=== PATIENT | female | born 1985 | race Caucasian/White ===

== ENCOUNTER → 2020-11-23 02:04 | Outpatient (CLI) | payer BC, SELFPAY ==
[2020-11-24 15:30] LABS: SARS-CoV-2 RNA PCR Negative
== END ==
PROVIDERS: PCP Family Medicine; Visit Provider Physician Assistant
DX: R05 Cough (principal); Z20.822 Contact with and (suspected) exposure to COVID-19
CPT/HCPCS: C9803; U0003; U0005

== ENCOUNTER 2021-02-10 16:14 | Outpatient (CLI) | payer BC, SELFPAY ==
--- NOTE | ~2021-02-10 | MR_ITS ---
EXAMINATION: MR lumbar spine wo con DATE: 02/10/2021 17:57 INDICATION: Dorsalgia TECHNIQUE: Magnetic resonance imaging (MRI) of the lumbar spine was performed without intravenous con trast. Sequences included sagittal T2-weighted FSE, sagittal T2-weighted FS FSE, sagittal T1-weighted FSE, and axial T2-weighted FSE. COMPARISON: None FINDINGS: Mild thoracolumbar dextrocurvature. Sagittal alignment is normal.. Vertebral body heights are normal. Disc desiccation and mild to moderate disc height loss at L4-L5 and mild height loss at L5-S1. There are annular fissures at both levels. Fibrovascular degenerative endplate changes on the right at L4- L5. Marrow signal is otherwise normal. The conus medullaris terminates at T12-L1. There is normal sig nal in the caudal spinal cord. Paravertebral soft tissues are unremarkable. The following disc levels are specifically discussed: T12-L1: The disc does not extend beyond the endplate margin. There is mild left facet joint osteoarth ritis. There is no neural foraminal stenosis. There is no central canal stenosis. L1-L2: The disc does not extend beyond the endplate margin. There is mild bilateral facet joint osteo arthritis. There is no neural foraminal stenosis. There is no central canal stenosis. L2-L3: The disc does not extend beyond the endplate margin. There is mild left facet joint osteoarthr itis. There is no neural foraminal stenosis. There is no central canal stenosis. L3-L4: The disc does not extend beyond the endplate margin. There is mild left facet joint osteoarthr itis. There is no neural foraminal stenosis. There is no central canal stenosis. L4-L5: Disc is bulging. There is mild bilateral facet joint osteoarthritis. There is mild bilateral n eural foraminal stenosis. There is mild central canal stenosis. L5-S1: Disc is bulging. There is mild bilateral facet joint osteoarthritis. There is no neural forami nal stenosis. There is no central canal stenosis. IMPRESSION: 1. Mild lower lumbar spondylosis. Reviewed, dictated and finalized at location A. ASTER
== END 2021-02-10 16:15 | disposition home or self-care (01) ==
LOC: ANHIMG 16:18
PROVIDERS: PCP Family Medicine; Visit Provider Family Medicine
DX: M54.9 Dorsalgia, unspecified (principal); R53.1 Weakness; M47.816 Spondylosis without myelopathy or radiculopathy, lumbar region
CPT/HCPCS: 72148

== ENCOUNTER → 2021-08-06 07:37 | Outpatient (CLI) | payer BC, SELFPAY ==
--- NOTE | ~2021-08-06 | XR_ITS ---
EXAMINATION: XR chest 2V Exam Date/Time: 08/06/2021 7:40 CDT CLINICAL HISTORY: cough x 2.5 weeks Comparison: None available. RESULT: Lines, tubes, and devices: None. Lungs and pleura: Clear. Cardiomediastinal silhouette: Normal cardiomediastinal silhouette. Other: No acute osseous or upper abdominal finding. IMPRESSION: No acute cardiopulmonary process Reviewed, dictated and finalized at location K.
== END ==
PROVIDERS: PCP Family Medicine; Visit Provider Family Medicine
DX: R05.9 Cough, unspecified (principal)
CPT/HCPCS: 71046

== ENCOUNTER → 2022-11-30 14:33 | Outpatient (CLI) | payer BC, SELFPAY ==
--- NOTE | ~2022-11-30 | MM_ITS ---
EXAMINATION: MM screening jeromy BI w delroy HISTORY: Screening mammogram TECHNIQUE: Craniocaudal and mediolateral oblique 3-D tomosynthesis images were obtained and synthetic 2-D images were generated. Bilateral rotated lateral craniocaudal views. CAD analysis was submitted and interpreted. COMPARISON: No prior mammogram is available for comparison at this institution. BREAST PARENCHYMAL COMPOSITION: There are scattered areas of fibroglandular density. FINDINGS: There is no evidence of suspicious mass, calcification, or architectural distortion to sugg est malignancy in either breast. IMPRESSION: 1. No mammographic evidence of malignancy. 2. Recommend routine screening mammography in one year. BI-RADS Category 1: Negative Reviewed, dictated and finalized at location A.
== END ==
PROVIDERS: PCP Family Medicine; Visit Provider Family Medicine
DX: Z12.31 Encounter for screening mammogram for malignant neoplasm of breast (principal)
CPT/HCPCS: 77063; 77067

== ENCOUNTER 2024-02-12 15:14 | Outpatient (CLI) | payer BC, SELFPAY ==
--- NOTE | ~2024-02-12 | MM_ITS ---
EXAMINATION: MM screening jeromy BI w delroy HISTORY: Screening mammogram TECHNIQUE: Craniocaudal and mediolateral oblique 3-D tomosynthesis images were obtained and synthetic 2-D images were generated. CAD analysis was submitted and interpreted. COMPARISON: 11/30/2022 BREAST PARENCHYMAL COMPOSITION:Not Dense. There are scattered areas of fibroglandular density. FINDINGS: No suspicious mass, calcification, or architectural distortion are identified in either christy ast to suggest malignancy. There has been no suspicious interval change. IMPRESSION: No mammographic evidence of malignancy. Recommend routine screening mammography in one year. BI-RADS Category 1: Negative Reviewed, dictated and finalized at location . PING INVESTIGATOR
== END 2024-02-12 15:15 | disposition home or self-care (01) ==
PROVIDERS: Visit Provider Family Medicine
DX: Z12.31 Encounter for screening mammogram for malignant neoplasm of breast (principal)
CPT/HCPCS: 77063; 77067

== ENCOUNTER 2024-05-05 13:18 | Outpatient (CLI) | payer BC, SELFPAY ==
--- OUTSIDE RECORDS SUMMARY | 2024-05-05 13:33 | XMS_ITS | Clinical Summary ---
Author Organization [facility] Address [address] [place] [address] Care Team Providers Care Machine Printer Hose Name Role Phone Unavailable Primary Care Provider Unavailabl e Source Comments [facility],non-owned Affiliates and Associated Physician Practices is amultiple site organization consisting of ambulatory clinics and hospital sitesin [place], [place], [place] and [place]. This disclosure is being madepursuant to the Care Everywhere program and may not contain all information available regarding this patient. Last updated 17.[facility] Immunizations Name Administration Dates Next Due INFLUENZA VACCINE, QUADR. (F LUZONE; FLULAVAL; FLUARIX; AFLURIA QUADRIVALENT; 6MO+), 0.5 ML (IIV4) 12/04/2019 Social History Tobacco Use Types Packs/Day Years Used Date Smoking Tobacco: Never Assessed Sex and Gender Information Value Date Recorded Sex Assigned at Not on file Gender Identity Not on file Sexual Orientation Not on file Plan of Treatment Health Maintenance Due Date Last Done Comments PAP SMEAR 1987 HIV SCREENING 2002 HEPATITIS C SCREENING 04/02/2005 DTAP/TDAP/TD VACCINES (1 - Tdap) 2006 HEPATITIS B VACCINE (1 of 3 - 19+ 3-dose series) 2006 COVID-19 VACCINE ( - 2023-2 5 season) 2023 INFLUENZA VACCINE (#1) 2023 12/04/2019 DEPRESSION SCREENING 03/26/2024 ZOSTER VACCINE (1 of 2) 2037 HIB VACCINE Aged Out No longer eligi ble based on patient's age to complete this topic HPV VACCINE Aged Out No longer eligi ble based on patient's age to complete this topic MENINGOCOCCAL (Group B) VACCINE Aged Out No longer eligible based on patient's age to complete this topic MENINGOCOCCAL VACCINE Aged Out No herber rajiv eligible based on patient's age to complete this topic PNEUMOCOCCAL VACCINE Aged Out No long er eligible based on patient's age to complete this topic
--- OUTSIDE RECORDS SUMMARY | 2024-05-05 13:33 | XMS_ITS | Encounter Summary ---
Author Organization [facility] Address [address] [facility] [place] [address] Care Team Providers Care Manager Speech Name Role Phone Lizet Baird DO Primary Care Provider [phone]- [phone] Reason for Referral * Diagnostic Imaging (Routine) - Authorized Specialty Diagnoses / Procedures Referred By Mamie t Referred To Contact Diagnoses Menorrhagia with regular cycle Procedures US Pelvis Complete Kian Adrian MD [address] [facility] [address], [place] [address] Phone: tel: fax: JERRELL Referral ID Status Reason Start Date Expiration Date V isits Requested Visits Authorized [id number] Authorized 05/05/2024 06/04/2025 1 1 ER CUTTER Reason for Visit * Reason Comments Well Women Visit Pt offered and decli wiliam drafter topographical for today's visit. Encounter Details Date Type Department Care Team (Latest Contact Info) Description 05/05/2024 10:35 AM TIMBER CUTTER Office Visit [facility] [address] [place] [address] Medical Office [address] [place] [address] Kian Adrian MD [address] [facility] [address], [place] [address] Well woman exam with routine gynecological exam (Primary Dx); Menorrhagia with regular cycle Social History Tobacco Use Types Packs/Day Years Used Date Smoking Tobacco: Never Smokeless Tobacco: Never Alcohol Use Standard Drinks/Week Comments Never 0 (1 standard drink = 0.6 oz pur e alcohol) AUDIT-C Answer Date Recorded Frequency of Alcohol Consumption Never 11/14/2018 Average Number of Drinks Not on file 019 Frequency of Binge Drinking Not on file 10/25 Comments No Sex and Gender Information Value Date Recorded Sex Assigned at Not on file Legal Sex Female 11:14 AM TIMBER CUTTER Gender Identity Not on file Sexual Orientation Not on file 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 Well Woman Exam Subjective: Marian Barton is a 39 y.o. female who presents for Chief Complaint Patient presents with Well Women Visit Pt offered and declined drafter topographical for today's visit. . HPI: Menses: Regular Cycle length: Monthly Bleeds for 3-4 days, heavy, changes super tampons 4x a day Abnormal vaginal bleedings: denies Dyspareunia: denies Vaginal discharge: denies Lower abdominal or pelvic pain: denies Bloating:denies Bowel problems: denies Bladder problems: denies Current Medications: Current Outpatient Medications: buPROPion SR (WELLBUTRIN SR) 100 mg 12 hr tablet, Take 1 tablet (100 mg total) by mouth 2 (two) times a day, Disp: , Rfl: EPINEPHrine 0.3 mg/0.3 mL auto-injection syringe, INJECT 0.3 ML IN THE MUSCLE ONCE A SINGLE DOSE, Disp: , Rfl: Mounjaro 2.5 mg/0.5 mL pen injector, ADMINISTER 2.5 MG UNDER THE SKIN WEEKLY FOR 4 WEEKS (Patient not taking: Reported on 05/05/2024), Disp: , Rfl: sertraline (ZOLOFT) 100 mg tablet, Take 1 tablet (100 mg total) by mouth daily, Disp: , Rfl: sertraline (ZOLOFT) 25 mg tablet, 2 (two) times a day, Disp: , Rfl: Allergies: Allergies Allergen Reactions Tree Nuts Anaphylaxis Cat Dander Itching Obstetric History: OB History Para Term AB Living 1 1 1 0 0 1 SAB IAB Ectopic Multiple Live Births 0 0 0 0 1 # Outcome Date GA Lbr Kadeem/2nd Weight Sex Type Anes PTL Lv 1 Term 11/15/18 39w6d 04:59 / 02:55 3.41 kg (7 lb 8.3 oz) F Vag-Spont EPI N CARLA Comments: see peds Name: KARLA BARTON Apgar1: 6 Apgar5: 8 Obstetric Comments # 1: 11/15/2018 39 6/7 weeks, SOOL, OT aug, , girl, Adley , 7#8, epidural, DW at [facility](was told by peds at delivery high index of suspicion for Downs due to facial features and chromosomes were WNL). 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 Screening History: Screening History Date of Last Pap if Known: 04-30-23 co-testing: negative History of Abnormal Paps: Yes (2007- LEEP for VARGHESE 2.) Ever had an HPV vaccine?: Yes Number of doses received: 3 Ever had a mammogram?: Yes Date of Mammogram: 02-13-24 neg Medical History: Past Medical History: Diagnosis Date Allergic rhinitis Anemia Anxiety Arthritis Asthma Depression history of VARGHESE LEEP for VARGHESE 2 2007 HPV (human papilloma virus) infection Surgical History: Past Surgical History: Procedure Laterality Date CERVICAL BIOPSY W/ LOOP ELECTRODE EXCISION 2008 IN 2 Family History: Family History Problem Relation Age of Onset Mental illness Mother Arthritis Father Hypertension Father Mental illness Brother Social: Social History Tobacco Use Smoking status: Never Smokeless tobacco: Never Substance and Sexual Activity Drug use: Never Sexual activity: Not Currently control/protection: Vasectomy Alcohol Use: Not At Risk (11/14/2018) AUDIT-C Frequency of Alcohol Consumption: Never Average Number of Drinks: Not on file Frequency of Binge Drinking: Not on file REVIEW OF SYSTEMS: General: Negative for fever, fatigue, weight loss Skin: Negative for color change and rash. HENT: Negative for congestion and nosebleeds. Breast: Negative for lumps, pain and nipple discharge. Gastrointestinal: Negative for abdominal pain. Constipation, diarrhea, nausea/vomiting. Endocrine: Negative for heat intolerance. Genitourinary: Negative for dysuria, frequent urination or loss of urine. Allergic/Immunologic: Negative for immunocompromised state. Neurological: Negative for dizziness and headaches. Hematological: Negative for adenopathy. Psychiatric/Behavioral: Negative for anxiety, depression or eating disorders Musculoskeletal: Negative for muscle aches, weakness or painful joints. Women only: Negative for heavy bleeding, irregular bleeding, missed periods, painful periods, painful intercourse, vaginal discharge/itching. Objective BP 110/68 Wt 175 lb (79.4 kg) LMP 04/13/2024 (Exact Date) BMI 28.25 kg/m?? Physical Exam General: alert, orientated, cooperative Breast: normal in appearance, no nipple discharge, no lumps, no skin changes CV: regular rate and rhythm Lungs: clear to auscultation bilaterally Abdomen: soft, non-tender, no palpable masses, non-distended, normal bowel sounds present. No scarspresent Extremities: non-tender, no edema Container Finishing Inspector exam: External:normal appearing and no lesions Urethra: normal appearing, No lesions or prolapse Bladder: normal appearance, No masses or tenderness. Vagina: Normal Cervix: Post LEEP appearance, approximately 1 cm in length externally, no cervical motion tenderness, lesions, discharge or bleeding Uterus: Normal size, non tender Adnexa: non-tender and no palpable masses Perineum: normal Rectal: deferred Assessment and Plan 1. Well woman exam with routine gynecological exam (Primary) The importance of routine health maintenance exams including breast and pelvic exams, annual screening mammography starting at age 40, periodic bone density testing in post menopausal women and screening colonoscopy after age 45, regardless of a family hx, was discussed with the ptnt. 2. Menorrhagia with regular cycle The patient's menorrhagia was discussed in detail. Possible etiologies were reviewed and diagnostictools to better identify the source of her menorrhagia including ultrasound, hysteroscopy, endometrial biopsy and even D&C were discussed. Options of management were also reviewed. These options include expectant management at this time, a trial of oral contraceptives, a cyclic progestin, a non-hormonal non-daily medication such as Lysteda, a Mirena intrauterine device, various types of endometrial ablation procedures, and even hysterectomy. Will begin with US RTO 1 year/prn Kian Adrian MD ER CUTTER documented in this encounter Plan of Treatment Scheduled Orders Name Type Priority Associated Diagnoses Orde r Schedule US Pelvis Complete Imaging Routine Menorrhagia with regular cycle Expected: 05/05/2024, Expires: 05/05/2025 documented as of this encounter Visit Diagnoses Diagnosis Well woman exam with routine gynecological exam- Primary Routine gynecological examination Menorrhagia with regular cycle documented in this encounter Discontinued Medications Medication Sig Discontinue Reason Start Date End Da te cyclobenzaprine (FLEXERIL) 10 mg tablet Take 10 mg by mouth 3 (three) times a day as needed for muscle spasms Patient Reported 02/10/2021 05/02/[address] (VOLTAREN) 75 mg EC tablet Take 1 BID with food Patient Reported 02/24/2021 05/02/2024 documented as of this encounter Care Teams Manager Speech Relationship Specialty Start Date End Date Lizet Baird DO PCP - General Family Medicine 02/24/21 documented as of this encounter
--- OUTSIDE RECORDS SUMMARY | 2024-05-05 13:33 | XMS_ITS | Referral Summary ---
Author Organization [facility] Address [address] [place] [address] Care Team Providers Care Control Supervisor Name Role Phone Lizet Baird DO Primary Care Provider [phone]- [phone] Encounters Date Type Department Care Team Description 05/05/2024 10:35 AM CORRECTION OFFICER HEAD [facility] Visit [facility] [address] [place] [phone] Kian Adrian MD Well woman exam with routine gynecological exam (Primary Dx); Menorrhagia with regular cycle 02/13/2024 Orders Only [facility] [address] [place] [phone] Kian Adrian MD from Last 3 Months Allergies Active Allergy Reactions Criticality Noted Date Comments Cat Dander Itching Low 02/24/2021 Tree Nuts Anaphylaxis High 10/02/2012 Medications EPINEPHrine 0.3 mg/0.3 mL auto-injection syringe INJECT 0.3 ML IN THE MUSCLE ONCE A SINGLE DOSE 1 Active sertraline (ZOLOFT) 100 mg tablet Take 1 tablet (100 mg total) by mouth daily 1 Active sertraline (ZOLOFT) 25 mg tablet 2 (two) times a day 1 Active Mounjaro 2.5 mg/0.5 mL pen injector ADMINISTER 2.5 MG UNDER THE SKIN WEEKLY FOR 4 WEEKS 4 Active buPROPion SR (WELLBUTRIN SR) 100 mg 12 hr tablet Take 1 tablet (100 mg total) by mouth 2 (two) times a day Active cyclobenzaprin e (FLEXERIL) 10 mg tablet Take 10 mg by mouth 3 (three) times a day as needed for muscle spasms 1 05/02/19 25 Discontinu ed(Patient Reported) diclofenac DR (VOLTAREN) 75 mg EC tablet Take 1 BID with food 60 tablet 1 05/02/19 25 Discontinu ed(Patient Reported) Active Problems No known active problems Social History Tobacco Use Types Packs/Day Years [...] on file Legal Sex Female 11:14 AM CORRECTION OFFICER HEAD Gender Identity Not on file Sexual Orientation Not on file 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 Not on file Not on file Not on file Last Filed Vital Signs Vital Sign Reading Time Taken Comments Blood Pressure 110/68 05/05/2024 10:39 AM CORRECTION OFFICER HEAD Pulse 85 11/17/2018 7:15 AM CDT Temperature 36.5 C (97.7 F) 11/17/2018 7:15 AM CDT Respiratory Rate 18 11/17/2018 7:15 AM CDT Oxygen Saturation 99% 11/17/2018 7:15 AM CDT Inhaled Oxygen Concentration - - Weight 79.4 kg (175 lb) 05/05/2024 10:39 AM CORRECTION OFFICER HEAD Height 167.6 cm (5' 6 ) 02/24/2021 8:41 AM CORRECTION OFFICER HEAD Body Mass Index 28.25 02/24/2021 8:41 AM CORRECTION OFFICER HEAD Plan of Treatment Not on file Procedures Procedure Name Priority Date/Time Associated Diagnosis Comments SCAN - RADIOLOGY/IMAGING 02/13/2024 4:50 PM CORRECTION OFFICER HEAD PAP AND HPV, REFLEX TO HPV GENOTYPES Routine 04/30/2023 5:19 PM CORRECTION OFFICER HEAD Cervical cancer screening from Last 3 Months or Most Recently Relevant to Health Maintenance Results * SCAN - RADIOLOGY/IMAGING (02/13/2024 4:50 PM CORRECTION OFFICER HEAD) Anatomical Region Laterality Modality Other Kian Adrian MD Final Resu lt * Pap and HPV, reflex to HPV Genotypes (04/30/2023 5:19 PM CORRECTION OFFICER HEAD) Clinical indication Comment [facility] - 01 Comment:NEGATIVE FOR INTRAEP ITHELIAL LESION OR MALIGNANCY. Specimen adequacy: Comment [facility] - 01 Comment: Satisfactory for evaluation. Endocervical and/or squamous metaplastic cells (endocervical component) are present. Clinician provided ICD10 Comment [facility] - 01 Comment:Z12.4 Performed by Comment [facility] - 01 Comment:Marco Antonio Parry, Truck Driver Rubbish Collector (ASCP) . . [facility] - 01 Note: Comment [facility] - 01 Comment: The Pap smear is a screening test designed to aid in the detection of premalignant and malignant conditions of the uterine cervix. It is not a diagnostic procedure and should not be used as the sole means of detecting cervical cancer. Both false-positive and false-negative reports do occur. Test methodology Comment [facility] - 01 Comment: This liquid based ThinPrep(R) pap test was screened with the use of an image guided system. HPV Aptima Negative Negative [facility] [place] Comment: This nucleic acid amplification test detects fourteen high-risk HPV types (16,18,31,33,35,39,45,51,52,56,58,59,66,68) without differentiation. HPV Genotype Reflex Comment [facility] - 01 Comment:Criteria not met, HP V Genotype not performed. Thin prep 04/30/2023 5:19 PM CORRECTION OFFICER HEAD 04/30/2023 Narrative [facility] - 05/02/2023 4:12 PM CORRECTION OFFICER HEAD Performed at: - [address] [id number] Molding Machine Operator Helper: Sylvia Fowler MD, Phone: [phone] Performed at: - [address] [id number] Molding Machine Operator Helper: Sylvia Fowler MD, Phone: [phone] Specimen Comment: Source.............Cervix;Endocervix Specimen Comment: No. of containers..01 ThinPrep Vial Kian Adrian MD LAB CYTOLOGY ORDERABLES Fi nal Result [facility] - 01 [facility] [place] 02 from Last 3 Months or Most Recently Relevant to Health Maintenance Insurance [employer] [place] [employer] [place] [employer] [place] Advance Directives For more information, please contact: [phone] * Full Code (Latest Code Status on File) Date Activated Date Inactivated Comments 11/15/2018 7:44 AM 11/17/2018 6:33 PM * Full Code Date Activated Date Inactivated Comments 11/14/2018 5:07 PM 11/15/2018 7:44 AM Full CPR in case of cardiopulmonary arrest * Full Code Date Activated Date Inactivated Comments 11/14/2018 5:07 PM 11/14/2018 5:07 PM Full CPR in case of cardiopulmonary arrest Care Teams Control Supervisor Relationship Specialty Start Date End Date Lizet Baird DO PCP - General Family Medicine 02/24/21
--- OUTSIDE RECORDS SUMMARY | 2024-05-05 13:33 | XMS_ITS | Patient Health Summary ---
Author Organization [facility] Address [address] [place] [address] Care Team Providers Care Black Ash Burner Operator Name Role Phone Unavailable Primary Care Provider Unavailabl e Note from [facility],non-owned Affiliates and Associated Physician Practices is amultiple site organization consisting of ambulatory clinics and hospital sitesin [place], [place], [place] and [place]. This disclosure is being madepursuant to the Care Everywhere program and may not contain all information available regarding this patient. Last updated 17.[facility] Immunizations * INFLUENZA VACCINE, QUADR. (FLUZONE; FLULAVAL; FLUARIX; AFLURIA QUADRIVALENT; 6MO+), 0.5 ML (IIV4)(Given 12/04/2019) Social History Tobacco Use Types Packs/Day Years Used Date Smoking Tobacco: Never Assessed Sex and Gender Information Value Date Recorded Sex Assigned at Not on file Gender Identity Not on file Sexual Orientation Not on file Procedures * DERMATOPATHOLOGY(Performed 09/19/2022) Results * DERMATOPATHOLOGY (09/19/2022 2:20 PM CDT) Case Report Dermatopathology Report Case: [id number] Authorizing Provider: Natalie Zhu DO Collected: 09/19/2022 02:20 PM Ordering Location: [facility] DermPath Lab Received: 09/20/2022 01:39 PM Pathologist: Mikaela Villatoro MD Specimen: Skin, left ant le 3 3:10 PM CDT DERMATOPATHOLOGY LABORATORY Final Diagnosis Specimen A. SKIN, left ant le: DERMATOFIBROMA (D23.9) 3 3:10 PM CDT DERMATOPATHOLOGY LABORATORY Clinical History DF R/O ATYPIA 3 3:10 PM CDT DERMATOPATHOLOGY LABORATORY Gross Description Specimen A: Received is one formalin filled container labeled with the patient's name and designated left ant le. The specimen consists of a shave biopsy measuring 4x2x1 mm. Jar 0. 3 3:10 PM CDT DERMATOPATHOLOGY LABORATORY Microscopic Description Specimen A. SKIN, left ant le: There is epidermal hyperplasia. Within the dermis, there are fibrohistiocytic cells in haphazard array among coarse collagen bundles. 3 3:10 PM CDT DERMATOPATHOLOGY LABORATORY Disclaimer An external and internal positive and negative controls are appropriate for the histochemical, immunohistochemical and immunofluorescence stain(s) in this case (if any), except where stated explicitly. The performance characteristics of the stain(s) cited in this report were developed and its performance characteristic determined by the Dermatopathology Laboratory at [facility], directed by Dr. Pritesh Price. These tests need not be, and therefore are not, approved by the [place] Food and Drug Administration. The tests are used for clinical purposes. Billing Codes Specimen Charges Stain Charges 20888 1 3 3:10 PM CDT DERMATOPATHOLOGY LABORATORY Embedded Images 3 3:10 PM CDT DERMATOPATHOLOGY LABORATORY Pathology/Cytolo gy TISSUE SPECIMEN FROM SKIN / Unknown 09/19/2022 2:20 PM CDT 09/20/2022 1:39 PM CDT Natalie Zhu DO LAB - PATHOLOGY/C YTOLOGY ORDERABLES DERMATOPATHOLOGY LABORATORY [facility] - Department of Dermatology [address], [address] [phone]
--- OUTSIDE RECORDS SUMMARY | 2024-05-05 13:33 | XMS_ITS | Encounter Summary ---
Author Organization [facility] Address [address] [place] [address] Care Team Providers Care Clean Out Driller Name Role Phone Unavailable Primary Care Provider Unavailabl e Encounter Details Date Type Department Care Team (Late st Contact Info) Description 09/19/2022 Lab Requisition [facility] - DermPath Lab [address] [place] [address] Natalie Zhu DO [address] [place] [address] Social History Tobacco Use Types Packs/Day Years Used Date Smoking Tobacco: Never Assessed Sex and Gender Information Value Date Recorded Sex Assigned at Not on file Gender Identity Not on file Sexual Orientation Not on file documented as of this encounter Plan of Treatment Not on file documented as of this encounter Procedures Procedure Name Priority Date/Time Associated Diagnosis Comments DERMATOPATHOLOGY Routine 09/19/2022 2:20 PM CDT documented in this encounter Results * DERMATOPATHOLOGY (09/19/2022 2:20 PM CDT) Case Report Dermatopathology Report Case: [id number] Authorizing Provider: Natalie Zhu DO Collected: 09/19/2022 02:20 PM Ordering Location: [facility] DermPath Lab Received: 09/20/2022 01:39 PM Pathologist: [...] characteristic determined by the Dermatopathology Laboratory at [facility], directed by Dr. Pritesh Price. These tests need not be, and therefore are not, approved by the [place] Food and Drug Administration. The tests are used for clinical purposes. Billing Codes Specimen Charges Stain Charges 20516 1 3 3:10 PM CDT DERMATOPATHOLOGY LABORATORY Embedded Images 3 3:10 PM CDT DERMATOPATHOLOGY LABORATORY Pathology/Cytolo gy TISSUE SPECIMEN FROM SKIN / Unknown 09/19/2022 2:20 PM CDT 09/20/2022 1:39 PM CDT Natalie Zhu DO LAB - PATHOLOGY/C YTOLOGY ORDERABLES DERMATOPATHOLOGY LABORATORY [facility] - Department of Dermatology [address], [address] [phone] documented in this encounter Visit Diagnoses Not on filedocumented in this encounter
--- OUTSIDE RECORDS SUMMARY | 2024-05-05 13:33 | XMS_ITS | Clinical Summary ---
Author Organization [facility] Address [address] [place] [address] Care Team Providers Care Five Roll Refiner Batch Mixer Name Role Phone Lizet Baird DO Primary Care Provider [phone] Allergies Active Allergy Reactions Criticality Noted Date [...] Reported) Active Problems No known active problems Encounters Date Type Department Care Team Description 05/05/2024 10:35 AM PATIENT CARE NURSING ASSISTANT Office Visit [facility] [address] [place] [phone] Kian Adrian MD Well woman exam with routine gynecological exam (Primary Dx); Menorrhagia with regular cycle 02/13/2024 Orders Only [facility] [address] [place] [phone] Kian Adrian MD from Last 3 Months Surgical History Surgery Date Site/Laterality Comments CERVICAL BIOPSY W/ LOOP ELEC TRODE EXCISION 03/26/2007 - 03/25/2008 IN 2 Medical History Medical History Date Comments Depression history of VARGHESE LEEP for VARGHESE 2 2 008 HPV (human papilloma virus) infection Anemia Anxiety Arthritis Asthma Allergic rhinitis Family History Medical History Relation Name Comments Mental illness Brother Arthritis Father Hypertension Father Mental illness Mother Relation Name Status Comments Brother Father Alive Mother Alive Social History Tobacco Use Types Packs/Day Years [...] on file Legal Sex Female 11:14 AM PATIENT CARE NURSING ASSISTANT Gender Identity Not on file Sexual Orientation Not on file 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 Not on file Not on file Not on file Obstetrics History Para Term AB IAB SAB Ectopic Multiple Livin g Live Births 1 1 1 0 1 1 Date Outcome GA Total Labor Labor/2nd/3rd Weight Sex Type Anes PTL Fara A1 A5 Name Clin 2018 Term 39w 6d 8h 00m 4h 59m/2h 55m/0h 06m 3.41 kg (7 lb 8.3 oz) F Vag-S pont Epidur al N Livin g 6 8 PERKI NS,GI RLKEL Kian Mondragon MD Complications:None Delivery Location:This Facil ity ([facility]) Comments:see peds Comments # 1: 11/15/2018 39 6/7 weeks, SOOL, OT aug, , girl, Adley , 7#8, epidural, DW at [facility] (was told by peds at delivery high index of suspicion for Downs due to facial features and chromosomes were WNL). Last Filed Vital Signs Vital Sign Reading Time Taken Comments Blood Pressure 110/68 05/05/2024 10:39 AM PATIENT CARE NURSING ASSISTANT Pulse 85 11/17/2018 7:15 AM CDT Temperature 36.5 C (97.7 F) 11/17/2018 7:15 AM CDT Respiratory Rate 18 11/17/2018 7:15 AM CDT Oxygen Saturation 99% 11/17/2018 7:15 AM CDT Inhaled Oxygen Concentration - - Weight 79.4 kg (175 lb) 05/05/2024 10:39 AM PATIENT CARE NURSING ASSISTANT Height 167.6 cm (5' 6 ) 02/24/2021 8:41 AM PATIENT CARE NURSING ASSISTANT Body Mass Index 28.25 02/24/2021 8:41 AM PATIENT CARE NURSING ASSISTANT Plan of Treatment Health Maintenance Due Date Last Done Comments Hepatitis C Screening 1987 DTaP/Tdap/Td Vaccine (1 - Tdap) 1998 Varicella Vaccines (1 of 2 - 13+ 2-dose series) 2000 Hepatitis B Screening 2005 Depression Screening 11/17/2019 11/16/2018 Covid-19 Vaccine (2023- season) 2023 05/07/2020, 04/08/2020 Influenza Vaccine (#1) 2023 , 12/27/2018, 04/11/2018, Additional history exists Cervical Cancer Screening 04/30/2024 04/30/2023 Regular Well Visit/Exam 18-64 05/05/2025 05/05/2024, 04/30/2023 HPV Vaccines Aged Out No longer eligi ble based on patient's age to complete this topic Pneumococcal vaccine <65 Aged Out No longer eligible based on patient's age to complete this topic Procedures Procedure Name Priority Date/Time Associated Diagnosis Comments SCAN - RADIOLOGY/IMAGING 02/13/2024 4:50 PM PATIENT CARE NURSING ASSISTANT PAP AND HPV, REFLEX TO HPV GENOTYPES Routine 04/30/2023 5:19 PM PATIENT CARE NURSING ASSISTANT Cervical cancer screening from Last 3 Months or Most Recently Relevant to Health Maintenance Results * SCAN - RADIOLOGY/IMAGING (02/13/2024 4:50 PM PATIENT CARE NURSING ASSISTANT) Anatomical Region Laterality Modality Other us Kian Adrian MD Final Resu lt * Pap and HPV, reflex to HPV Genotypes (04/30/2023 5:19 PM PATIENT CARE NURSING ASSISTANT) Clinical indication Comment [facility] - 01 Comment:NEGATIVE FOR INTRAEP ITHELIAL LESION OR MALIGNANCY. Specimen adequacy: Comment [facility] - 01 Comment: Satisfactory for evaluation. Endocervical and/or squamous metaplastic cells (endocervical component) are present. Clinician provided ICD10 Comment [facility] - 01 Comment:Z12.4 Performed by Comment [facility] - 01 Comment:Marco Antonio Parry, Steam Crane Operator (ASCP) . . [facility] - 01 Note: [...] system. HPV Aptima Negative Negative LAB [place] 02 Comment: This nucleic acid amplification test detects fourteen high-risk HPV types (16,18,31,33,35,39,45,51,52,56,58,59,66,68) without differentiation. HPV Genotype Reflex Comment [facility] - 01 Comment:Criteria not met, HP V Genotype not performed. Thin prep 04/30/2023 5:19 PM PATIENT CARE NURSING ASSISTANT 04/30/2023 Narrative [facility] - 05/02/2023 4:12 PM PATIENT CARE NURSING ASSISTANT Performed at: - [address] [id number] Customs Collector: Sylvia Fowler MD, Phone: [phone] Performed at: - [address] [id number] Customs Collector: Sylvia Fowler MD, Phone: [phone] Specimen Comment: Source.............Cervix;Endocervix Specimen Comment: No. of containers..01 ThinPrep Vial Kian Adrian MD LAB CYTOLOGY ORDERABLES Fi nal Result [facility] - 01 [facility] [place] 02 from Last 3 Months or Most Recently Relevant to Health Maintenance Insurance [employer] [place] [employer] [place] Advance Directives For more information, please contact: [phone] * Full Code (Latest Code Status on File) Date Activated Date Inactivated Comments 11/15/2018 7:44 AM 11/17/2018 6:33 PM * Full Code Date Activated Date Inactivated Comments 11/14/2018 5:07 PM 11/15/2018 7:44 AM Full CPR in case of cardiopulmonary arrest * Full Code Date Activated Date Inactivated Comments 11/14/2018 5:07 PM 11/14/2018 5:07 PM Full CPR in case of cardiopulmonary arrest Care Teams Five Roll Refiner Batch Mixer Relationship Specialty Start Date End Date Lizet Baird DO PCP - General Family Medicine 02/24/21
--- OUTSIDE RECORDS SUMMARY | 2024-05-05 13:33 | XMS_ITS | Referral Summary ---
Author Organization [facility] Address [address] [place] [address] Care Team Providers Care Bosom Presser Name Role Phone Unavailable Primary Care Provider Unavailabl e Source Comments [facility],non-owned Affiliates and Associated Physician Practices is amultiple site organization consisting of ambulatory clinics and hospital sitesin [place], [place], [place] and [place]. This disclosure is being madepursuant to the Care Everywhere program and may not contain all information available regarding this patient. Last updated 17.[facility] Immunizations Name Administration Dates Next Due INFLUENZA VACCINE, QUADR. (F LUZONE; FLULAVAL; FLUARIX; AFLURIA QUADRIVALENT; 6MO+), 0.5 ML (IIV4) 12/04/2019 Social History Tobacco Use Types Packs/Day Years Used Date Smoking Tobacco: Never Assessed Sex and Gender Information Value Date Recorded Sex Assigned at Not on file Gender Identity Not on file Sexual Orientation Not on file Plan of Treatment Not on file
[2024-05-05 19:40] LABS: Influenza A QL RT-PCR Positive (Negative); Influenza B QL RT-PCR Negative (Negative); RSV RNA, RT-PCR Negative (Negative); SARS-CoV-2 RNA PCR Negative (Negative)
== END 2024-05-05 13:19 | disposition home or self-care (01) ==
LOC: ANHGOSHLAB 13:18
PROVIDERS: PCP Family Medicine; Visit Provider Family Medicine
DX: R50.9 Fever, unspecified (principal); Z20.822 Contact with and (suspected) exposure to COVID-19
CPT/HCPCS: 87637

== ENCOUNTER 2024-05-09 15:15 | Outpatient (CLI) | payer BC, SELFPAY ==
--- NOTE | ~2024-05-09 | XR_ITS ---
CHEST RADIOGRAPH, PA AND LATERAL CLINICAL HISTORY: R05.9 - Cough, unspecified . COMPARISON: 08/06/2021 TECHNIQUE: PA and lateral views of the chest. FINDINGS The cardiomediastinal silhouette is unremarkable. The lungs are clear. Visualized osseous structures and soft tissues are unremarkable. IMPRESSION: No focal infiltrate or effusion. Reviewed, dictated and finalized at location A. CTOR SPEECH
== END 2024-05-09 15:16 | disposition home or self-care (01) ==
PROVIDERS: PCP Family Medicine; Visit Provider Family Medicine
DX: R05.9 Cough, unspecified (principal)
CPT/HCPCS: 71046

== ENCOUNTER 2025-02-13 10:59 | Outpatient (CLI) | payer BC, SELFPAY ==
--- NOTE | ~2025-02-13 | MM_ITS ---
EXAMINATION: MM screening jeromy BI w delroy HISTORY: Screening TECHNIQUE: Craniocaudal and mediolateral oblique 3-D tomosynthesis images were obtained and synthetic 2-D images were generated. CAD analysis was submitted and interpreted. COMPARISON: Comparison to multiple prior studies sequentially, with oldest reviewed study dated 11/30/2022. BREAST PARENCHYMAL COMPOSITION: Dense: The breasts are heterogeneously dense, which may obscure small masses FINDINGS: There is no evidence of suspicious mass, calcification, or architectural distortion to suggest malignancy in either breast. There has been no suspicious interval change. IMPRESSION: 1. No mammographic evidence of malignancy. 2. Recommend routine screening mammography in one year. BI-RADS Category 1: Negative Reviewed, dictated and finalized at location O. AIN STITCHER
== END 2025-02-13 11:00 | disposition home or self-care (01) ==
PROVIDERS: PCP Family Medicine; Visit Provider Family Medicine
DX: Z12.31 Encounter for screening mammogram for malignant neoplasm of breast (principal)
CPT/HCPCS: 77063; 77067

== ENCOUNTER 2025-03-13 19:31 | Emergency (ER) | payer BC, SELFPAY ==
--- NOTE | 2025-03-13 19:37 | ED_ITS ---
HPI - URI/Sore Throat General Chief Complaint: Upper Respiratory Infection Stated Complaint: Sore throat History of Present Illness HPI Narrative: 39 y/o female presented for c/o sore throat, left ear pain, nasal congestion with drainage, body aches, subjective fever, and cough. Onset 5 days. Taking DayQuil and Theraflu. Denies sob,wheezing, n/v/d. Related Data Allergies Allergy/AdvReac Type Severity Reaction Status Date / Time cat dander Allergy Unknown sneezing, Verified 08/22/24 14:00 coughing nut - unspecified Allergy Unknown angioedema Verified 08/22/24 14:00 TREE NUTS Allergy Severe Anaphylaxis Uncoded 08/22/24 14:00 Review of Systems Review of Systems: per [facility] Past Medical History Medical History Depression Family History Family History Other Depression Social History Social History Social History: Caffeine-Coffee 2-3 cups daily Smoking status: Never smoker Alcohol intake: current Alcohol use details: occasionally Substance use: never Lack of Transportation: No Lack of Food: Never True Current Housing: I Have Housing Concerned About Future Housing: No Difficulty Paying Gas/Electric Bills: No Difficulty Paying for Meds: No Currently Unemployed: No Education: Master's Degree or Higher Difficulty w/ Childcare or Family Care: No Exam Narrative: GENERAL: well-appearing, no acute distress. EYES: conjunctivae clear ENT: Mucous membranes moist. right TM pearly werner with normal light reflex; Left TM erythematous and bulging, intact. no tragal tenderness. Oropharynx erythematous without lesions. No drooling, no hoarseness, no trismus, uvula midline. No tripod positioning, hot potato voice, or soft palate swelling. NECK: Supple. No lymphadenopathy CHEST: Clear to auscultation, breath sounds equal. No respiratory distress, speaks in full sentences. HEART: Regular rate and rhythm. No murmur heard. SKIN: Warm, dry, no rash. NEURO: Alert and oriented x3. Course Course Level of Care: Express Care Visit MDM MDM Narrative Medical decision making narrative: Discussed physical exam findings URI and Left AOM; Neg strep. Advised supportive measures and signs/symptoms to go to the ER. Pt is appropriate for outpt treatment and f/u. Differential Diagnosis Differential Diagnosis: Influenza, covid, sinusitis, OM, strep pharyngitis, URI Discharge Plan Discharge Clinical Impression: Upper respiratory infection Otitis media Qualifiers: Otitis media type: suppurative Chronicity: acute Laterality: left Recurrence: non-recurrent Spontaneous tympanic membrane rupture: without spontaneous rupture Qualified Code(s): H66.002 - Acute suppurative otitis media without spontaneous rupture of ear drum, left ear Patient Disposition: Home Condition: Stable Instructions: Antibiotic Form, Ear Infection (ED) Additional Instructions: Take antibiotics as directed. Recommend antihistamine such as Benadryl, Zyrtec or Johanna for sinus congestion Flonase nasal spray, 1 spray in each nostril once daily until symptoms improve Symptomatic treatment includes: rest, fluids, and increase humidity of the air at home. Tylenol 1000mg every 8 hours as needed to reduce fever, pain Please schedule a follow-up visit with your personal physician for further eval uation and treatment within 3-5days. If your symptoms persist, change or worsen significantly, go to the emergency department for further evaluation. Patient Language: Lao Prescriptions: New amoxicillin-pot clavulanate 875-125 mg tablet 1 tablet PO Q12H 7 Days Qty: 14 0RF methylprednisolone [Medrol (Missael)] 4 mg tablets,dose pack See Rx Instructions .ROUTE .COMPLEX Qty: 21 0RF Rx Instructions: orally per package directions No Action epinephrine [EpiPen 2-Missael] 0.3 mg/0.3 mL auto-injector 0.3 mg IM ONCE Qty: 2 3RF Rx Instructions: as a single dose clindamycin phosphate 1 % gel 1 applic topical QAM AND QHS PRN (Reason: folliculitis) Qty: 60 4RF cyclobenzaprine 10 mg tablet 10 mg PO TID PRN (Reason: muscle spasm) Qty: 60 1RF bupropion HCl 150 mg tablet sustained-release 12 hr 150 mg PO DAILY Qty: 90 1RF sertraline 100 mg tablet See Rx Instructions .ROUTE .COMPLEX Qty: 90 1RF Dose Instruction: TAKE 1 TABLET BY MOUTH DAILY Rx Instructions: TAKE 1 TABLET BY MOUTH DAILY Zepbound 2.5 mg/0.5 mL pen injector 2.5 mg subcut WEEKLY Qty: 2 5RF Rx Instructions: for 4 weeks sertraline 25 mg tablet 25 mg PO DAILY Qty: 90 1RF Rx Instructions: Take with the 100mg tablets for a total daily dose of Sertraline 125mg Follow-up/Referrals: Lizet Baird DO [Primary Care Provider, [facility]] Time of Disposition: 19:56
[2025-03-13 19:42] VITALS: BP 109/72; PULSE 65; RESP 16; TEMP 37; O2SAT 99
[2025-03-13 19:51] LABS: EDSTREPNEGPOS1 Negative (Negative)
== END 2025-03-13 19:57 | disposition home or self-care (01) ==
PROVIDERS: Emergency Provider Nurse Practitioner Family; PCP Family Medicine
DX: J06.9 Acute upper respiratory infection, unspecified (principal); H66.002 Acute suppurative otitis media without spontaneous rupture of ear drum, left ear; F32.A Depression, unspecified
CPT/HCPCS: 87081; 87880; 99203; G0463